=== PATIENT | female | born 1980 | race Caucasian/White ===

== ENCOUNTER 2022-10-03 15:09 | Emergency (ER) | payer OTHER, BC, SELFPAY ==
--- NOTE | ~2022-10-03 | XR_ITS ---
EXAMINATION: XR lumbar spine 2-3V DATE: 10/03/2022 15:38 INDICATION: Low back pain. TECHNIQUE: 3 views of lumbar spine were obtained. COMPARISON: None. FINDINGS: There is 14 degrees dextroscoliosis of thoracolumbar spine. Vertebral body heights and inte rvertebral disc heights are normal. The facet joints are unremarkable. Surgical clips in the right up per quadrant are likely from cholecystectomy. IMPRESSION: 1. Thoracolumbar dextroscoliosis. Reviewed, dictated and finalized at location B.
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
[2022-10-03 15:18] VITALS: BP 130/91; PULSE 77; RESP 16; TEMP 36.5; O2SAT 99
== END 2022-10-03 15:54 | disposition home or self-care (01) ==
PROVIDERS: Emergency Provider Nurse Practitioner
DX: S39.012A Strain of muscle, fascia and tendon of lower back, initial encounter (principal); V43.62XA Car passenger injured in collision with other type car in traffic accident, initial encounter; F41.9 Anxiety disorder, unspecified
CPT/HCPCS: 72100; 99203; G0463

== ENCOUNTER 2023-05-29 17:27 | Emergency (ER) | payer BC, SELFPAY ==
--- NOTE | 2023-05-29 17:34 | ED.GENADULT ---
HPI - General Adult General Chief complaint: Extremity Problem,Nontraumatic Stated complaint: Swelling to Right Leg Source: patient, RN notes reviewed and old records reviewed Mode of arrival: ambulatory Limitations: no limitations History of Present Illness HPI narrative: 42-year-old female presents to [facility] with complaint of right calf pain and swelling that started this a.m.. Patient states pain is in medial and lateral leg. Patient denies injury. Patient denies any other complaints. Related Data Home Medications Medication Instructions Recorded Confirmed amlodipine 5 mg tablet 5 mg PO DAILY 10/03/22 05/29/23 buspirone 7.5 mg tablet 7.5 mg PO BID 10/03/22 05/29/23 escitalopram oxalate 20 mg tablet 20 mg PO DAILY 10/03/22 05/29/23 valacyclovir 1 gram tablet 1,000 mg PO DAILY 10/03/22 05/29/23 zolpidem 10 mg tablet 10 mg PO DAILY 05/29/23 05/29/23 Allergies Allergy/AdvReac Type Severity Reaction Status Date / Time sulfamethoxazole Allergy Unknown Rash Verified 05/29/23 17:45 trimethoprim Allergy Unknown Rash Verified 05/29/23 17:45 meperidine AdvReac Unknown Nausea and Verified 05/29/23 17:45 Vomiting Review of Systems Constitutional: Constitutional: Reports no additional constitutional complaints, Denies body ache(s), Denies chills, Denies fatigue, Denies fever(s) and Denies headache(s) Eyes: Eyes: Reports no additional eye complaints and Denies blurry vision ENT: Reports system reviewed and no additional complaints, except as documented, Denies vertigo, Denies dizziness, Denies ear discharge, Denies otalgia, Denies facial pain, Denies headache(s), Denies nasal congestion, Denies nasal discharge, Denies sinus pain, Denies sinus pressure and Denies sore throat Cardiovascular: Cardiovascular: Reports no additional cardiovascular complaints, Denies chest pain, Denies chest pain at rest, Denies rapid heart rate and Denies dyspnea Respiratory: Respiratory: Reports no additional respiratory complaints, Denies chest congestion, Denies cough, Denies pain on inspiration, Denies pain with cough and Denies dyspnea Gastrointestinal: Gastrointestinal: Denies abdominal pain, Denies diarrhea, Denies nausea and Denies vomiting Musculoskeletal: Comments: Right calf swelling and tenderness this started this a.m. Integumentary/Breasts: Skin/Breast: Denies rash Neurologic: Reports system reviewed and no additional complaints, except as documented, Denies vertigo, Denies dizziness and Denies headache(s) Endocrine: Endocrine: Denies fatigue PMFSH Comments At the time of my signature, I reviewed and agree with the nursing past medical, surgical, social, and family history. There is no relevant family history pertinent to the patient complaint. Exam Const: General: cooperative, healthy appearing, no acute distress and well nourished Nutritional Appearance: well nourished Orientation/consciousness: patient oriented x3 Limitations: no limitations HENMT: Head: normal to inspection and normocephalic Ears: external ears normal Face/Nose/Sinus: normal facial exam Face and sinus: normal facial exam Mouth: Yes Normal oral and palatal mucosa present, Yes oropharynx normal and Yes moist mucous membranes Eyes: General: appearance normal, both eyes and all related structures Sclera: sclerae normal Pupils: Equal, round and reactive pupils present Resp: Effort & Inspection: normal respiratory effort, able to speak in complete sentences, no audible wheezes, no cough, no respiratory distress and no retractions Skin: General skin exam: normal color and no rashes or lesions noted Neuro: General: patient oriented x3 Cranial nerves: Yes Equal, round and reactive pupils present Extrem: Left lower extremity: normal capillary refill, knee Details: normal to inspection, normal ROM and knee ligament exam normal; no tenderness and no swelling and lower leg Details: tenderness and localized swelling; no pitting edema, no abrasions,
[2023-05-29 17:35] VITALS: BP 142/85; PULSE 76; RESP 16; TEMP 36.7; O2SAT 99
== END 2023-05-29 17:53 | disposition short-term general hospital (02) ==
PROVIDERS: Emergency Provider Registered Nurse
DX: R22.41 Localized swelling, mass and lump, right lower limb (principal); F41.9 Anxiety disorder, unspecified
CPT/HCPCS: 99212; G0463

== ENCOUNTER 2023-05-29 18:53 | Emergency (ER) | payer BC, SELFPAY ==
--- NOTE | ~2023-05-29 | US_ITS ---
EXAMINATION: US venous doppler LE RT DATE: 05/29/2023 20:06 INDICATION: r/o dvt . TECHNIQUE: Grayscale images without and with compression and Doppler images of the right lower extrem ity veins were obtained. COMPARISON: None FINDINGS: The right common femoral vein, profunda (deep) femoral vein, femoral vein, popliteal vein, peroneal v ein, posterior tibial veins, gastrocnemius vein, and greater saphenous vein are patent. IMPRESSION: Patent right lower extremity veins. No evidence of deep venous thrombosis. Reviewed, dictated and finalized at location K.
--- NOTE | 2023-05-29 19:15 | ED.GENADULT ---
HPI - General Adult General Chief complaint: Extremity Problem,Nontraumatic Stated complaint: r/o dvt Time Seen by Provider: 05/29/23 19:05 Source: patient Mode of arrival: ambulatory Limitations: no limitations History of Present Illness HPI narrative: This is a 42-year-old female who presents to the ED with chief complaint of right lower extremity intermittent swelling and pain. She was sent here after evaluation urgent care to rule out blood clot. No history of blood clot. Denies any recent travel, immobilization, estrogen use. Denies any rash, fevers, chills. Denies any known injury. Related Data Home Medications Medication Instructions Recorded Confirmed amlodipine 5 mg tablet 5 mg PO DAILY 10/03/22 05/29/23 buspirone 7.5 mg tablet 7.5 mg PO BID 10/03/22 05/29/23 escitalopram oxalate 20 mg tablet 20 mg PO DAILY 10/03/22 05/29/23 valacyclovir 1 gram tablet 1,000 mg PO DAILY 10/03/22 05/29/23 zolpidem 10 mg tablet 10 mg PO DAILY 05/29/23 05/29/23 Allergies Allergy/AdvReac Type Severity Reaction Status Date / Time sulfamethoxazole Allergy Unknown Rash Verified 05/29/23 18:56 trimethoprim Allergy Unknown Rash Verified 05/29/23 18:56 meperidine AdvReac Unknown Nausea and Verified 05/29/23 18:56 Vomiting Review of Systems Review of Systems: All systems as dictated in HPI Exam Narrative: GENERAL: Well-appearing, well-nourished, and in no acute distress. HEAD: Normocephalic, atraumatic. EYES: PERRLA and EOMI. ENT: Nares clear, no rhinorrhea or epistaxis. Mucous membranes moist. Oropharynx without tonsillar hypertrophy exudate or other lesions. NECK: Supple. No adenopathy or masses. CHEST: No respiratory distress. Clear to auscultation. No wheezes rales or rhonchi HEART: Regular rate and rhythm. No murmur heard. Normal peripheral pulses. ABDOMEN: Soft, nontender, nondistended, normal active bowel sounds. MSK: Normal range of motion. No edema bilaterally. No rash. No tenderness throughout extremities. SKIN: Warm, dry, no rash. NEURO: Alert and oriented x3. No focal deficits. PSYCH: Normal mood and affect. Course Vital Signs Vital signs: Vital Signs Pulse Rate 71 05/29/23 20:31 Respiratory Rate 15 05/29/23 20:31 Blood Pressure 124/66 05/29/23 20:31 Pulse Oximetry 100 05/29/23 20:31 Pulse Rate 71 05/29/23 20:31 Respiratory Rate 15 05/29/23 20:31 Blood Pressure 124/66 05/29/23 20:31 Pulse Oximetry 100 05/29/23 20:31 Medical Decision Making MDM Narrative Medical decision making narrative: This is a 42-year-old female who presents to the ED with chief complaint of intermittent right lower extremity swelling and pain. Sent from urgent care to rule out DVT. Vitals are normal. Exam is unremarkable. No edema or signs of DVT. No evidence of skin infection. Doppler study right lower extremity is negative for DVT. Symptoms consistent musculoskeletal pain. Pt will be discharged in stable condition. Return precautions given and supportive measures discussed. Pt is understanding and agreeable with plan for discharge and follow-up with PCP. Vital Signs Vital Signs: Vital Signs Pulse Rate 71 05/29/23 20:31 Respiratory Rate 15 05/29/23 20:31 Blood Pressure 124/66 05/29/23 20:31 Pulse Oximetry 100 05/29/23 20:31 Pulse Rate 71 05/29/23 20:31 Respiratory Rate 15 05/29/23 20:31 Blood Pressure 124/66 05/29/23 20:31 Pulse Oximetry 100 05/29/23 20:31 Discharge Plan Discharge Clinical Impression: Paresthesia of right leg Patient Disposition: Home, Self-Care Condition: Stable Instructions: Antibiotic Form Additional Instructions: your exam and imaging today are reassuring. No blood clot. please follow-up closely with your PCP. If you have any new or worsening symptoms please return to the ER for further evaluation. Prescriptions: No Action zolpidem 10 mg tablet 10 mg PO DAILY valac
[2023-05-29 20:31] VITALS: BP 124/66; PULSE 71; RESP 15; O2SAT 100
== END 2023-05-29 20:32 | disposition home or self-care (01) ==
PROVIDERS: Emergency Provider Physician Assistant
DX: R20.2 Paresthesia of skin (principal)
CPT/HCPCS: 93971; 99212; 99284; G0463

== ENCOUNTER 2023-10-08 14:49 | Emergency (ER) | payer BC, SELFPAY ==
[2023-10-08 15:00] VITALS: BP 126/91; PULSE 87; RESP 20; TEMP 36.9; O2SAT 100
--- NOTE | 2023-10-08 16:04 | ED.SKABFB ---
HPI - Skin/Abscess/Foreign Bdy General Chief complaint: Skin/Abscess/Foreign Body Stated complaint: bites from something Time Seen by Provider: 10/08/23 15:50 Source: patient, RN notes reviewed and old records reviewed Mode of arrival: ambulatory Limitations: no limitations History of Present Illness HPI narrative: 43 year old female who presents to [facility] care with complaints of insect bites to her legs, back, abdomen, genital area since Saturday which are itchy and burning. She reports that she walked through tall grass on Saturday in shorts and tennis shoes and felt like sometime was biting her under pants. Patient reports that she has been applying Calamine lotion to areas and has been taking Benadryl without improvement. Patient denies any fevers or chills. MD complaint: rash and insect bite/sting Onset (ago): day(s) (2) Location: generalized Severity: moderate Quality: pruritic Treatments prior to arrival: Benadryl and other (calamine lotion) Related Data Home Medications Medication Instructions Recorded Confirmed valacyclovir 1 gram tablet 1,000 mg PO DAILY 10/03/22 10/08/23 zolpidem 10 mg tablet 10 mg PO DAILY 05/29/23 10/08/23 Allergies Allergy/AdvReac Type Severity Reaction Status Date / Time sulfamethoxazole Allergy Unknown Rash Verified 10/08/23 15:09 trimethoprim Allergy Unknown Rash Verified 10/08/23 15:09 meperidine AdvReac Unknown Nausea and Verified 10/08/23 15:09 Vomiting Review of Systems Review of Systems: CONSTITUTIONAL: Denies fever, chills, or sweats. CARDIOVASCULAR: Denies chest pain, palpitations, or edema. RESPIRATORY: Denies cough or dyspnea. SKIN: Reports small red raised bumps on legs, abdomen, back, and genital area that are itchy after walking in tall grass MUSCULOSKELETAL: Denies joint pain or myalgia. NEUROLOGIC: Denies headache, numbness, or weakness. All systems reviewed & are unremarkable except as noted in HPI and below PMFSH Past Medical History Medical History (Updated 10/09/23 @ 15:53 by Brittany Lawson NP) Insomnia Surgical History Surgical History H/O: hysterectomy History of cholecystectomy Previous section Social History Social History Smoking status: Current every day smoker Tobacco type: e-cigarettes/vaping Alcohol intake: current Alcohol use details: social Substance use type: does not use Living arrangements: with family Gender identity (if verbalized by the patient): Female Comments At time of signature, agree with nursing past medical, surgical, social and family history. There is no relevant family history pertinent to the presenting complaint Exam Narrative: GENERAL: Well-appearing, well-nourished, and in no acute distress. HEAD: Normocephalic, atraumatic. EYES: PERRLA, conjunctivae clear, and EOMI. ENT: Mucous membranes moist. Oropharynx without edema, erythema or lesions. NECK: Supple. No lymphadenopathy CHEST: Clear to auscultation. No respiratory distress.SAO2 100% on room air HEART: Regular rate and rhythm. SKIN: Warm, dry.?Scattered small red raised bites on legs, back, abdomen, and in genital area NEURO:? Alert and oriented x3. PSYCH: Normal mood and affect Course Course Emergency Course: Patient is aware of diagnosis, understands and agrees to treatment plan.? Anticipatory guidance given.? Patient agrees to follow-up as directed and is aware of reasons to seek care at the emergency department. Portions of this record may have been created with voice recognition software Level of Care: Express Care Visit Vital Signs Vital signs: Vital Signs Temperature 36.9 C 10/08/23 15:00 Pulse Rate 87 10/08/23 15:00 Respiratory Rate 20 10/08/23 15:00 Blood Pressure 126/91 H 10/08/23 15:00 Pulse Oximetry 100 10/08/23 15:00 Oxygen Delivery Room Air 10/08/23 15:00
== END 2023-10-08 16:25 | disposition home or self-care (01) ==
PROVIDERS: Emergency Provider Registered Nurse
DX: L25.9 Unspecified contact dermatitis, unspecified cause (principal); B88.0 Other acariasis; F17.290 Nicotine dependence, other tobacco product, uncomplicated
CPT/HCPCS: 99213; G0463

== ENCOUNTER 2024-04-16 16:34 | Emergency (ER) | payer BC, SELFPAY ==
--- OUTSIDE RECORDS SUMMARY | 2024-04-16 16:37 | XMS_ITS | Patient Health Summary ---
Author Organization [facility] Address [address] [place] [address] Care Team Providers Care Advertising Internship Name Role Phone Unavailable Primary Care Provider Unavailabl e Note from [facility],non-owned Affiliates and Associated Physician Practices is amultiple site organization consisting of ambulatory clinics and hospital sitesin [place], [place], [place] and [place]. This disclosure is being madepursuant to the Care Everywhere program and may not contain all information available regarding this patient. Last updated 17.[facility] Allergies * Meperidine(Anaphylaxis) -High Criticality * Sulfamethoxazole W-Trimethoprim(Nausea) -Low Criticality Medications * Be aware that medications may not be up to date on this document. Alwaysverify current medications with the patient. * norethin-eth estrad-fe biphas (LO LOESTRIN FE) tablet(Started 01/31/2016) Take by mouth DAILY. * valACYclovir (VALTREX) 1 GM tablet(Started 01/24/2016) 8 refills left Active Problems Problem Noted Date Diagnosed Date Subacute on chronic vulvitis 01/31/2016 Pruritus vulvae 01/31/2016 Other specified conditions a ssociated with female genital organs and menstrual cycle 01/31/2016 Social History Tobacco Use Types Packs/Day Years Used Date Smoking Tobacco: Former Cigarettes Q uit: 04/01/2014 Alcohol Use Standard Drinks/Week Comments Yes 0 (1 standard drink = 0.6 oz pur e alcohol) Sex and Gender Information Value Date Recorded Sex Assigned at Not on file Gender Identity Not on file Sexual Orientation Not on file Last Filed Vital Signs Vital Sign Reading Time Taken Comments Blood Pressure 114/78 01/31/2016 1:08 PM CRITICAL CARE SPECIALIST Pulse - - Temperature - - Respiratory Rate - - Oxygen Saturation - - Inhaled Oxygen Concentration - - Weight 52.2 kg (115 lb) 01/31/2016 1:08 PM CRITICAL CARE SPECIALIST Height 160 cm (5' 3 ) 01/31/2016 1:08 PM CRITICAL CARE SPECIALIST Body Mass Index 20.37 01/31/2016 1:08 PM CRITICAL CARE SPECIALIST Procedures * DERMATOPATHOLOGY(Performed 07/25/2022) * PH FLUID - POCT (AMB) [facility](Performed 01/31/2016) * WET PREP - POINT OF CARE (AMB) [facility](Performed 01/31/2016) * FUNGUS FARTUN - POINT OF CARE (AMB) [facility](Performed 01/31/2016) * LAB HISTORICAL RESULTS-ONBASE(Performed 01/31/2016) * CULTURE YEAST WITH DIRECT FLUORESCENT FARTUN(Performed 01/31/2016) Results * DERMATOPATHOLOGY (07/25/2022 3:33 AM CDT) Case Report Dermatopathology Report Case: [id number] Authorizing Provider: Kendall Somers MD Collected: 07/25/2022 03:33 AM Ordering Location: [facility] DermPath Lab Received: 07/27/2022 10:14 AM Pathologist: Gladys Abebe MD Specimen: Skin, right back 5:08 PM CDT DERMATOPATHOLOGY LABORATORY Final Diagnosis Specimen A. SKIN, right back: COMPOUND MELANOCYTIC NEVUS, IRRITATED (D22.5) 5:08 PM CDT DERMATOPATHOLOGY LABORATORY Clinical History Nevus vs. MM. Path# [id number] 5:08 PM CDT DERMATOPATHOLOGY LABORATORY Gross Description Specimen A: Received is one formalin filled container labeled with the patient's name and designated right back. The specimen consists of a shave biopsy measuring [id number]. Jar 0. 5:08 PM CDT DERMATOPATHOLOGY LABORATORY Microscopic Description Specimen A. SKIN, right back: There is melanin pigment in the stratum corneum. There are nests of melanocytes at the dermal-epidermal junction and within the dermis. 5:08 PM CDT DERMATOPATHOLOGY LABORATORY Disclaimer An external and internal positive and negative controls are appropriate for the histochemical, immunohistochemical and immunofluorescence stain(s) in this case (if any), except where stated explicitly. The performance characteristics of the stain(s) cited in this report were developed and its performance characteristic determined by the Dermatopathology Laboratory at [facility], directed by Dr. Sven Alfaro. These tests need not be, and therefore are not, approved by the [place] Food and Drug Administration. The tests are used for clinical purposes. Billing Codes Specimen Charges Stain Charges 28624 1 3 5:08 PM CDT DERMATOPATHOLOGY LABORATORY Embedded Images 3 5:08 PM CDT DERMATOPATHOLOGY LABORATORY Pathology/Cytolo gy TISSUE SPECIMEN FROM SKIN / Unknown 07/25/2022 3:33 AM CDT 07/27/2022 10:14 AM CDT Kendall Somers MD LAB - PATHOLOGY/CYTO LOGY ORDERABLES DERMATOPATHOLOGY LABORATORY [facility] Department of Dermatology [facility] [address] ([place], [place]), [address] [phone] * LAB HISTORICAL RESULTS-ONBASE (01/31/2016) 01/31/2016 Historical Provider LAB - CHEMISTRY O RDERABLES Performing Organization Address [facility]/ZIP Co de Phone Number [facility] [address] * PH FLUID - POCT (AMB) [facility] (01/31/2016) pH Vaginal 5.5 [facility] Vaginal swab (specimen) 01/31/2016 Ekta Guaman APRN-[facility] - POINT OF CARE ORDERABLES [facility] * WET PREP - POINT OF CARE (AMB) [facility] (01/31/2016) pH Wet Prep 5.5 [facility] Yeast Wet Prep n [facility] Trichomonas Wet Prep n [facility] Bacteria Wet Prep n [facility] Whiff Test n [facility] 01/31/2016 Ekta Guaman APRN-[facility] - POINT OF CARE ORDERABLES [facility] * FUNGUS FARTUN - POINT OF CARE (AMB) [facility] (01/31/2016) FARTUN Prep n [facility] Fluid specimen (specimen) 01/31/2016 Ekta Guaman APRN-[facility] - POINT OF CARE ORDERABLES Performing Organization Address [facility]/ZIP Co de Phone Number [facility] * CULTURE YEAST WITH DIRECT FLUORESCENT FARTUN (01/31/2016) Smear SEE NOTE [facility] ([facility]) Comment: CULTURE, YEAST, W/DIRECT FLUORESCENT FARTUN MICRO NUMBER: [id number] TEST STATUS: FINAL SPECIMEN SOURCE: VAGINA SPECIMEN QUALITY: ADEQUATE SMEAR: No yeast seen RESULT: No fungal growth at 2 Weeks Test Performed at: [id number] [id number] PAVEL CISSE MD Vaginal swab (specimen) 01/31/2016 02/01/2016 3:36 AM CRITICAL CARE SPECIALIST Narrative [facility] ([facility]) - 02/15/2016 5:00 AM CRITICAL CARE SPECIALIST Specimen Type->Vaginal swab Ekta NEAL LAB - MICRO BIOLOGY ORDERABLES [facility])
--- OUTSIDE RECORDS SUMMARY | 2024-04-16 16:37 | XMS_ITS | Referral Summary ---
Author Organization [facility] Address [address] [place] [address] Care Team Providers Care Access Assoc Name Role Phone Unavailable Primary Care Provider Unavailabl e Source Comments [facility],non-owned Affiliates and Associated Physician Practices is amultiple site organization consisting of ambulatory clinics and hospital sitesin [place], [place], [place] and [place]. This disclosure is being madepursuant to the Care Everywhere program and may not contain all information available regarding this patient. Last updated 17.[facility] Allergies Active Allergy Reactions Criticality Noted Date Comments Meperidine Anaphylaxis High 01/31/2016 Sulfamethoxazole W-Trimethoprim Nausea Low 01/03 Medications * Be aware that medications may not be up to date on this document. Alwaysverify current medications with the patient. Medication Sig Dispensed Refills Start Date End Date Status norethin-eth estrad-fe biphas (LO LOESTRIN FE) tablet Take by mouth DAILY. 01/31/2016 Active valACYclovir (VALTREX) 1 GM tablet 8 01/24/2016 Active Active Problems Problem Noted Date Diagnosed Date [...] Comments Blood Pressure 114/78 01/31/2016 1:08 PM LAUNCH LEADER Pulse - - Temperature - - Respiratory Rate - - Oxygen Saturation - - Inhaled Oxygen Concentration - - Weight 52.2 kg (115 lb) 01/31/2016 1:08 PM LAUNCH LEADER Height 160 cm (5' 3 ) 01/31/2016 1:08 PM LAUNCH LEADER Body Mass Index 20.37 01/31/2016 1:08 PM LAUNCH LEADER Plan of Treatment Not on file
--- OUTSIDE RECORDS SUMMARY | 2024-04-16 16:37 | XMS_ITS | Encounter Summary ---
Author Organization [facility] Address [address] [place] [address] Phone Care Team Providers Care Armature Balancer Name Role Phone Amol Zhou MD Primary Care Provider [phone] Encounter Details Date Type Department Care Team (Latest Contact Info) Description 04/01/2023 [facility] [address] [place] [id number] Ileana Leung, CRUMB PACKER, BACKEND DEVELOPER [address] [place] [address] Menopausal and female climacteric states (Primary Dx) Social History Tobacco Use Types Packs/Day Years Used Date Smoking Tobacco: Former Cigarettes 1 15 Smokeless Tobacco: Never Alcohol Use Standard Drinks/Week Comments Yes 0 (1 standard drink = 0.6 oz pur e alcohol) Sexually Active Control Partners Comments Yes None Male Comments No Sex and Gender Information Value Date Recorded Sex Assigned at Not on file Legal Sex Female 11:48 PM CDT Gender Identity Not on file Sexual Orientation Not on file documented as of this encounter Plan of Treatment Scheduled Orders Name Type Priority Associated Diagnoses Orde r Schedule THYROID SCREEN WITH REFLEX Lab Routine Menopausal and female climacteric states Expected: 04/01/2023, Expires: 04/01/2024 FOLLICLE STIMULATING HORMONE ([facility]) Lab Routine Menopausal and female climacteric states Expected: 04/01/2023, Expires: 04/01/2024 documented as of this encounter Visit Diagnoses Diagnosis Menopausal and female climacteric states- Primary documented in this encounter Additional Health Concerns Assessment Noted Time PHQ-9 Depression Total Score: 0 04/23/19 17 3:00 PM LOGISTICS LEAD documented as of this encounter Care Teams Armature Balancer Relationship Specialty Start Date End Date Amol Zhou MD [address] [place] [address] [place] [id number] PCP - General Dividend Clerk 10/08/22 documented as of this encounter
--- OUTSIDE RECORDS SUMMARY | 2024-04-16 16:37 | XMS_ITS | Clinical Summary ---
Author Organization [facility] Healthcare Address [address] [place] [address] Care Team Providers Care Health Support Specialist Name Role Phone Simon Sher MD Primary Care Provider Chas Kumar MD Unavailable [phone] Allergies Active Allergy Reactions Criticality Noted Date Comments Meperidine Agitation,Anaphylaxi s High 01/31/2016 Metronidazole Unknown 03/20/2018 Note: Hurts her stomach Sulfamethoxazole-Trimeth oprim Nausea Only,Nausea only Low 04/18/2015 Medications biotin 1 mg tablet Take 1 tablet (1,000 mcg total) by mouth daily 100 tablet 3 04/11/2021 Active ondansetron (ZOFRAN) 4 mg tablet Take 1 tablet (4 mg total) by mouth every 6 (six) hours 12 tablet 1 07/05/2022 Active zolpidem (AMBIEN) 10 mg tabletIndicatio ns:Sleep-Onset Insomnia Take 1 tablet (10 mg total) by mouth nightly as needed for sleep 30 tablet 01/19/2024 5 Active Active Problems Problem Noted Date Diagnosed Date Altered taste 08/07/2023 Assessment & Plan (08/07/2023 4:13 PM CDT): -recurring -patient reports altered since of taste which has happened before and is currently going on once again -patient states she has been evaluated by ENT for this issue which was inconclusive -patient reports due to her altered sense of taste she has had a poor appetite and unintentional weight loss -discussed different options and recommendations for nutritional support -will check vitamin levels related to nutritional status -encourage patient to monitor weight closely Unintentional weight loss 08/07/2023 Assessment & Plan (08/07/2023 4:16 PM CDT): -acute -associated with altered taste and smell and poor appetite -current BMI of 19.39 -patient reports she is typically 10-15 lb heavier than her current weight -encourage patient to explore modifications that is still allow adequate nutritional intake and adding in nutritional supplements -encourage patient to continue to monitor weight closely Body mass index (BMI) of 19 or less in adult 07/2023 Assessment & Plan (08/07/2023 3:02 PM CDT): Wt Readings from Last 3 Encounters: 08/06/23 48.1 kg (106 lb) 03/18/23 48.5 kg (107 lb) 03/07/23 50.5 kg (111 lb 6.4 oz) Body mass index is 19.39 kg/m . -Stable, at goal of <30 bmi -Discussed recommendations for exercise at least 30 minutes moderate to vigorous exercise as tolerated most days of the week. (minimum 150 minutes weekly) -Discussed importance of well-balanced diet -patient reports recent weight loss due to altered taste Essential hypertension 04/10/2022 Assessment & Plan (08/07/2023 3:13 PM CDT): BP Readings from Last 3 Encounters: 08/06/23 120/78 03/18/23 133/85 03/07/23 110/66 -chronic, stable -currently controlled through lifestyle modifications -patient previously prescribed amlodipine, which she states she has not taken in quite awhile -patient reports checking blood pressure regularly at home -continue current therapy Assessment & Plan (01/07/2023 4:21 PM DIRECTOR CHEMISTRY): BP Readings from Last 3 Encounters: 01/07/23 110/74 07/05/22 128/82 07/03/22 110/78 Vitals BP 110/74 (BP Location: Left arm, Patient Position: Sitting) Pulse 72 Resp 16 Ht 157.5 cm (5' 2.01 ) Wt 49.4 kg (109 lb) LMP 09/28/2018 (Approximate) SpO2 97% BMI 19.93 kg/m Lab Results Component Value Date POTASSIUM 4.1 04/26/2022 At goal Continue norvasc 5 mg every day Assessment & Plan (07/05/2022 4:24 PM CDT): BP Readings from Last 3 Encounters: 07/05/22 128/82 07/03/22 110/78 05/22/22 128/82 Vitals BP 128/82 (BP Location: Right arm, Patient Position: Sitting) Pulse 68 Resp 14 Ht 157.5 cm (5' 2.01 ) Wt 49.9 kg (110 lb) LMP 09/28/2018 (Approximate) SpO2 98% BMI 20.11 kg/m Lab Results Component Value Date POTASSIUM 4.1 04/26/2022 At goal Continue norvasc 5 mg every day Assessment & Plan (05/22/2022 4:26 PM CDT): BP Readings from Last 3 Encounters: 05/22/22 128/82 04/26/22 132/82 04/10/22 140/85 Vitals BP 128/82 (BP Location: Left arm, Patient Position: Sitting) Pulse 60 Resp 16 Ht 157.5 cm (5' 2.01 ) Wt 52.2 kg (115 lb) LMP 09/28/2018 (Approximate) SpO2 98% BMI 21.03 kg/m Lab Results Component Value Date POTASSIUM 4.1 04/26/2022 At goal at this time continue norvac 5 mg every day Assessment & Plan (04/10/2022 4:40 PM DIRECTOR CHEMISTRY): BP Readings from Last 3 Encounters: 04/10/22 140/85 08/07/21 141/94 05/09/21 137/88 Vitals BP 140/85 Pulse 68 Resp 16 Ht 160 cm (5' 2.99 ) Wt 52.2 kg (115 lb) LMP 09/28/2018 (Approximate) SpO2 98% BMI 20.38 kg/m Lab Results Component Value Date POTASSIUM 3.5 04/19/2021 Not at goal at this time. Will start norvasc 5 mg every day Depression with anxiety 05/13/2021 Assessment & Plan (08/07/2023 3:28 PM CDT): -chronic, stable -patient currently does not require medications -previously unable to tolerate BuSpar and Lexapro -patient denies any worsening of depressed mood, thoughts of harming herself or others, or worsening anxiety -encouraged patient if her anxiety and depression worse to reach out to office to discuss further options -continue current therapy Assessment & Plan (01/08/2023 7:30 AM DIRECTOR CHEMISTRY): Singificant improvement in sx C/w lexapro 20 mg every day Start remeron 7.5 mg qhs for sleep as well Has racing thoughts when she tries to sleep and worsens her anxiety Assessment & Plan (05/22/2022 4:26 PM CDT): Not at goal at this time Will increase her lexapro to 15 mg - has had good improvement with lexapro at this time Anxiety still not well controlled Will start low dose buspar qhs prn Assessment & Plan (04/10/2022 4:48 PM DIRECTOR CHEMISTRY): Not at goal at this time has been off medications for some time and sx are worse States that she was not doing well on previous regimen Will start lexapro and have her come back in about 4 to 8 weeks for sx check She also has truoble sleeping and has been doing okay withl unesta and has now been on it assisted Would consider stopping.chanigng for something else or referral to sleep medicine Assessment & Plan (08/13/2021 5:18 PM CDT): She is still using a few leftover clonazepam sparingly. Discussed use and safety. Will renew for #15 and 1 refill. Will try desvenlafaxine. Discussed medication. Risks/benefits and how to take medication. Will have her f/u in 1 month Assessment & Plan (05/13/2021 2:46 PM DIRECTOR CHEMISTRY): Stable. Still having difficulty sleeping. I told her she needs to discuss this with psychiatry when she establishes as I do not feel I can any longer prescribe the clonazepam. Will continue zoloft. Pt is going to counseling as is her boyfriend and she states her relationship has improved as well. Tattoo of skin 04/19/2021 Assessment & Plan (04/19/2021 8:49 PM DIRECTOR CHEMISTRY): With cellulitis. Treat with augmentin. Call if no improvement. Dyspareunia in female 07/22/2020 Assessment & Plan (07/22/2020 6:05 PM CDT): Encouraged her to make a follow-up appointment with her insulator tester if pain continues. Healthcare maintenance 08/12/2019 Assessment & Plan (08/07/2023 3:12 PM CDT): Patient overdue on annual lab work, will reorder lab work Assessment & Plan (01/08/2023 7:29 AM DIRECTOR CHEMISTRY): Discussed lifestyle modifications, diet and exercise. Routine blood work ordered/reviewed today. Yearly vision and dental examinations. Assessment & Plan (08/12/2019 7:41 PM CDT): Patient Counseling: --Nutrition: Stressed importance of moderation in sodium/caffeine intake, saturated fat and cholesterol, caloric balance, sufficient intake of fresh fruits, vegetables, --Exercise: Stressed the importance of regular exercise. --Injury prevention: Discussed safety belts, throw rugs in house, smoke detectors, --Dental health: Discussed importance of regular tooth brushing, flossing, and dental visits. Labs as ordered.. Migraine without aura and wi thout status migrainosus, not intractable 08/11/2019 Assessment & Plan (08/11/2019 3:50 PM CDT): Will try maxalt. Discussed risks/benefits of medication, dosage and how to take it. NICOLE (generalized anxiety disorder) 08/20/2018 Assessment & Plan (03/18/2023 11:17 AM DIRECTOR CHEMISTRY): -chronic, not at/near goal -change to buspirone 15 mg half tablet 3 times daily as needed for anxiety -discussed with patient that mood change is likely related to coming off the lexapro without tapering. -follow up with PCP as scheduled or sooner as needed Patient reiterated no suicidal thoughts at this time; take medication as directed; contact 911 and go to the ER if becomes suicidal; discussed side effects of medication with patient; encouraged healthy diet and exericise; encouraged patient to see a counselor Assessment & Plan (03/07/2023 4:21 PM DIRECTOR CHEMISTRY): - chronic condition - used to be on Clonazepam 0.5 mg BID PRN int eh past - had been on Lexapro 20 mg daily which had helped but eventually felt numb and felt like it was not working well for her, less alert and stopped it - discussed do not recommend restarting Clonazepam while she is on Zolpidem, patient aware - currently on Buspirone 7.5 mg BID --> increase to 15 mg BID - no major coexisitng depression at this time - f/u in 2 months Assessment & Plan (01/07/2023 4:23 PM DIRECTOR CHEMISTRY): Has had significant improvement with lexapro But not at goal at this time C/w 20 mg every day Prn klonopin 0.5 mg which she hasn't been taking it Assessment & Plan (07/09/2022 1:54 PM CDT): Worsening anxiety. Increased buspirone 7.5 mg qhs up to bid. Strongly encouraged therapy. Go to nearest ER if you feel you may be a harm to yourself or to others. Assessment & Plan (07/05/2022 4:22 PM CDT): Has had significant improvement with lexapro But not at goal at this time Will increase to 20 mg every day Start low dose klonopin Assessment & Plan (04/19/2021 2:55 PM DIRECTOR CHEMISTRY): She had had some stomach upset with the zoloft 50mg and we decreased it to 25mg. She is doing well with that dose and has for 7 days, so I told her she can now increase it back to 50mg and she how she does Assessment & Plan (04/16/2021 7:49 PM DIRECTOR CHEMISTRY): Discussed trying an ssri. It looks like we tried celexa over a year ago and she had side effects. Pt was agreeable. Will try sertraline 50mg x 7 days, then increase to 100mg. Start hydroxyzine for sleep and prn anxiety. Refer to psychiatry. Assessment & Plan (07/22/2020 6:03 PM CDT): Stable. Doing well with clonazepam p.r.n.. Will continue current medications have her follow-up in 6 months Assessment & Plan (02/25/2020 10:54 AM DIRECTOR CHEMISTRY): Will add clonazepam 0.5 mg 1/2 to 1 tablet b.i.d. p.r.n. for anxiety. Discussed that we I do not prescribe Xanax. We discussed the risks and benefits of short-acting medications such as lorazepam verses clonazepam. She has tried SSRIs and BuSpar in the past without improvement and did not tolerate the SSRIs. Assessment & Plan (08/21/2018 5:54 PM CDT): Will try BuSpar 7.5 mg t.i.d. P.r.n.. Renewed Ambien at bedtime for sleep. Referred to Psychiatry Primary insomnia 02/07/2017 Assessment & Plan (08/07/2023 3:18 PM CDT): -chronic, stable -patient currently takes Ambien 10 mg nightly p.r.n. -patient previously evaluated by sleep Medicine -refill of Ambien provided -continue current therapy Assessment & Plan (03/07/2023 4:23 PM DIRECTOR CHEMISTRY): - chronic condition - issue with sleep initiation and not maintenance - in past has tried Trazodone - had side effects - was on Ambien 10 mg nightly, recently saw Sleep medicine and increased to 12.5 mg Ambien but felt after effects lingering on so wants to be back to her prior dosage - stop Ambien CR 12.5 mg nightly --> switch to Ambien 10 mg nightly, script sent in - see plan for anxiety which is co-exisitng issue as well Assessment & Plan (01/08/2023 7:29 AM DIRECTOR CHEMISTRY): Will refer to sleep medicine Not at goal at this time and worsening sx despite lunesta States that she is able to fall asleep but does wake up Had side effects to trazodone and we have no d/maikol it And seems to continue having fragmented sleep and poor sleep Will start low dose remeron, refer to sleep medicine, and refill lunesta 2 mg prn nightly Assessment & Plan (10/27/2021 10:31 PM CDT): halfway ambien use, then was abruptly discontinued after overdose and now cannot sleep. I am going to try lunesta. Discussed that this is a controlled substance as well. Will look into counseling for sleep problems. Assessment & Plan (08/13/2021 5:19 PM CDT): Will try trazodone 1/2 to 1 tablet at bedtime Assessment & Plan (04/19/2021 2:54 PM DIRECTOR CHEMISTRY): Will add trazodone. She doesn't recall this being overly helpful in the past, but I told her she could try it with the hydroxyzine. Assessment & Plan (04/16/2021 7:51 PM DIRECTOR CHEMISTRY): May try hydroxyzine at bedtime. Assessment & Plan (01/27/2021 6:47 PM DIRECTOR CHEMISTRY): Continue ambien Assessment & Plan (07/22/2020 6:06 PM CDT): Patient continues on Ambien nightly. Doing well with this and takes appropriately. I checked their [place] TRANSPORTATION PROGRAM DIRECTOR sheet, and it was consistent with prescribed medications. Assessment & Plan (02/25/2020 10:52 AM DIRECTOR CHEMISTRY): Improved with Ambien at bedtime. Will continue current medications. Assessment & Plan (08/12/2019 7:40 PM CDT): Improved/ stable with help of ambien. Will continue current dose. F/u 6 months Assessment & Plan (02/07/2017 4:20 PM DIRECTOR CHEMISTRY): Will continue ambien for now. Consider trying elavil in the future. I'd like to get her labs back before switching to anything different. I asked her to f/u in 1 month for recheck. Acne 02/06/2017 Assessment & Plan (01/17/2021 7:56 AM DIRECTOR CHEMISTRY): Continue spironolactone. Will start Retin-A 0.1% cream. Use sparingly at night to areas of acne. Discussed side effects including redness and dryness. Recommended using oil free moisturizer as well. Patient has a follow-up in office on January 23 and will discuss how she is doing with that at that appointment. Assessment & Plan (08/12/2019 7:40 PM CDT): May continue spironolactone daily. IBS (irritable bowel syndrome) 02/06/2017 Assessment & Plan (07/22/2020 6:03 PM CDT): Symptoms still consistent with IBS. No hernia palpated on exam. Patient is cleared to start her new exercise/lifting routine Assessment & Plan (12/04/2017 4:12 PM CDT): Discussed diagnosis. Patient states that her symptoms were improved when she was on the Celexa. She did have less bloating. I discussed how stress can make IBS symptoms worse. She believes constipation is controlled with the stool softener daily. I discussed referral to Gastroenterology and she was agreeable. We will check labs today including a celiac panel. We discussed gluten intolerance and trying a gluten free diet even if celiac panel was negative. Will also start Zoloft primarily for the depression and anxiety. Elevated LFTs Assessment & Plan (01/08/2023 7:31 AM DIRECTOR CHEMISTRY): Chemistry Lab Results Component Value Date SODIUM 139 04/26/2022 POTASSIUM 4.1 04/26/2022 CHLORIDE 104 04/26/2022 CO2 25 04/26/2022 ANIONGAP 11 04/26/2022 BUNSER 19 04/26/2022 CREATININE 0.75 04/26/2022 GLUCOSE 82 04/26/2022 CALCIUM 9.4 04/26/2022 BILITOT 1.1 04/26/2022 ALBUMIN 4.4 04/26/2022 GFRNAA 103 04/26/2022 ALKPHOS 67 04/26/2022 AST 21 04/26/2022 ALT 10 04/26/2022 PHOS 3.1 04/05/2021 MAGNESIUM 1.6 04/05/2021 Most recent labs as above Wnl Recheck with next lab work Assessment & Plan (04/10/2022 4:47 PM DIRECTOR CHEMISTRY): Repeat labs Assessment & Plan (04/16/2021 7:52 PM DIRECTOR CHEMISTRY): Elevated due to overdose. Will reorder LFT's to follow, recommended to have them rechecked in 5-7 days along with CK Resolved Problems Problem Noted Date Diagnosed Date Resolved Date Cellulitis of left upper extremity 04/19/2021 01/08/2023 Assessment & Plan (04/19/2021 8:50 PM DIRECTOR CHEMISTRY): Secondary to tattoo. Treat with augmentin. 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 However patient had a son with a positive strep. She has the throat pain and cervical lymphadenopathy that is consistent with strep. Will treat with amoxicillin for presumed strep. Swab Sent for throat culture Dysthymia 03/12/2017 08/12/2019 Assessment & Plan (12/04/2017 4:13 PM CDT): States that she does want to start another medication. She believes that she needs to be on something. Start Zoloft 50 milligrams 1/2 tablet for 7 days and titrating up to 50 milligrams. Discussed starting dose titrating dose and time frame for expected improvement. Discussed side effects. Will have her return in 1 month for recheck. Assessment & Plan (04/09/2017 4:10 PM DIRECTOR CHEMISTRY): Improving with celexa. She agrees with increase to 20mg as she still has some anxiety and edginess . Will have her f/u in 3 months for recheck. May continue ambien prn for sleep. Assessment & Plan (03/12/2017 8:26 AM DIRECTOR CHEMISTRY): Discussed starting a medication and pt is agreeable. Will start celexa . Discussed starting dose and titration to full dose, possible SE and time frame for expected results. Call if any suicidal thoughts or questions concerning SE. Do not abruptly stop medication without calling office. Follow up in 3-4 weeks for recheck and continuation of medications. Dry mouth 03/07/2017 08/12/2019 Assessment & Plan (03/12/2017 8:25 AM DIRECTOR CHEMISTRY): I told her dry mouth could be related or worsening due to invisalign use. Refer to endocrinology to discuss symptoms Hair loss 02/06/2017 01/08/2023 Assessment & Plan (03/12/2017 8:25 AM DIRECTOR CHEMISTRY): We discussed seeing dermatology. Patient is requesting to see an mail teller because of her family hx of thyroid disease and diabetes. She has a name of a doctor her mother sees, so referral was placed. I gave her an order to check an insulin level Assessment & Plan (02/07/2017 4:19 PM DIRECTOR CHEMISTRY): Will check TSH. Other fatigue 02/06/2017 07/22/2020 Assessment & Plan (12/04/2017 4:14 PM CDT): Will recheck labs as ordered. Assessment & Plan (02/06/2017 5:01 PM DIRECTOR CHEMISTRY): Will check labs today. Mild dysplasia of cervix (LEIGH I) 12/19/2011 07/22/2020 Overview (08/11/2019): Note: Unchanged - on colp and biopsy on 09/08/2006 Encounters Date Type Department Care Team Description 01/21/2024 Telephone [facility] Primary Care at [address] [place] [address] Simon Sher MD Medical Question/Miscellaneous from Last 3 Months Immunizations Name Administration Dates Next Due Influenza, Quadrivalent, Spl it, Preservative Free, Intramuscular 04/10/2022,01/23/2021 Influenza, Unspecified 12/10/2022,2021,02/25/2020(Defer red: Patient Refused),12/03/2019(Deferred: Patient Refused),12/02/2018(Deferred: Patient Refused),12/02/2017,12/02/2016 Pfizer SARS-CoV-2 Monovalent Vaccination (12+ Yrs) PURPLE 04/07/2021,03/17/2021 Td, adsorbed 05/15/1994 Tdap 04/10/2022 Surgical History Surgery Date Site/Laterality Comments CHOLECYSTECTOMY SECTION HYSTERECTOMY Still has ovaries Medical History Medical History Date Comments Endometriosis Anxiety Endometriosis of pelvic peritoneum 04/20/2019 Note: Unchanged Family History Medical History Relation Name Comments Hypertension Maternal Grandmother Hypertension Mother Relation Name Status Comments Maternal Grandmother Mother Social History Tobacco Use Types Packs/Day Years Used Date Smoking Tobacco: Former Cigarettes 1 15 1 999 - 2013 Smokeless Tobacco: Never Tobacco Cessation:Counseling Given: Not Answered Alcohol Use Standard Drinks/Week Comments Not Currently 0 (1 standard drink = 0.6 oz pur e alcohol) AUDIT-C Answer Date Recorded Q1: How often do you have a drink containing alcohol? Never 08/06/2023 Q2: How many drinks containi ng alcohol do you have on a typical day when you are drinking? Patient does not drink Q3: How often do you have si x or more drinks on one occasion? Never 08/06/2023 PHQ-2 Answer Date Recorded PHQ-2 Total Score (If total score is 3 or more points, staff should administer the PHQ-9) 0 08/06/2023 Personal Safety Answer Date Recorded Getting School Help Needed Denies 02/11 Comments No Sex and Gender Information Value Date Recorded Sex Assigned at Not on file Legal Sex Female 12:11 AM DIRECTOR CHEMISTRY Gender Identity Not on file Sexual Orientation Not on file Obstetrics History Last Filed Vital Signs Vital Sign Reading Time Taken Comments Blood Pressure 114/68 11/19/2023 4:23 PM CDT Pulse 85 11/19/2023 4:23 PM CDT Temperature 36.8 C (98.2 F) 11/19/2023 4:23 PM CDT Respiratory Rate 17 11/19/2023 4:23 PM CDT Oxygen Saturation 98% 11/19/2023 4:23 PM CDT Inhaled Oxygen Concentration - - Weight 48.1 kg (106 lb) 11/19/2023 4:23 PM CDT Height 157.5 cm (5' 2 ) 11/19/2023 4:23 PM CDT Body Mass Index 19.39 11/19/2023 4:23 PM CDT Plan of Treatment Health Maintenance Due Date Last Done Comments Breast Cancer Screening-Mammogram 1980 Hepatitis C Screening 1980 Hepatitis B Screening 1998 Influenza Vaccine (#1) 2023 3, 04/10/2022, 01/08/2022, Additional history exists Regular Well Visit/Exam 18-64 01/08/2024 01/07/2023, 08/11/2019 Depression Screening 08/05/2024 08/06/2023, 03/07/2023, 07/03/2022, Additional history exists DTaP/Tdap/Td Vaccine (2 - Td or Tdap) 04/10/2032 04/10/2022, 05/15/1994 Covid-19 Vaccine Discontinued 04/07/2021, 03/17/2021 Cervical Cancer Screening Discontinued 2022, 04/13/2019, 04/13/2019, Additional history exists HPV Vaccines Aged Out No longer eligi ble based on patient's age to complete this topic Pneumococcal vaccine <65 Aged Out No longer eligible based on patient's age to complete this topic Varicella Vaccines Discontinued Procedures Procedure Name Priority Date/Time Associated Diagnosis Comments HM PAP SMEAR WITH HPV Routine 10/08/2022 from Last 3 Months or Most Recently Relevant to Health Maintenance Results * HM PAP SMEAR WITH HPV (10/08/2022) us Generic External Data Provider HEALTH MAINTENANC E Final Result from Last 3 Months or Most Recently Relevant to Health Maintenance Insurance [employer] [place] Advance Directives For more information, please contact: [phone] * Full Code (Latest Code Status on File) Date Activated Date Inactivated Comments 04/05/2021 3:29 PM 04/10/2021 4:26 PM Care Teams Health Support Specialist Relationship Specialty Start Date End Date Simon Sher MD [address] [place] [address] DR CHANG [address] [address] PCP - General Family Medicine 03/07/23 Chas Kumar MD [address] [place] [address] [address] Final Inspector [facility] Obstetrics and Gynecology 08/06/23
--- OUTSIDE RECORDS SUMMARY | 2024-04-16 16:37 | XMS_ITS | Encounter Summary ---
Author Organization [facility] Healthcare Address [address] [place] [address] Care Team Providers Care Electronic Engraver Name Role Phone Marquita Hong NP Unavailable Marquita Hong NP Primary Care Provider [phone] Laura Reddy MD Unavailable Amol Zhou MD Primary Care Provider [phone] Simon Sher MD Primary Care Provider Chas Kumar MD Unavailable [phone] Encounter Details Date Type Department Care Team (Late st Contact Info) Description 08/21/2019 Telephone [facility] [address] [place] [id number] Malena Olmedo, JADE Social History Tobacco Use Types Packs/Day Years Used Date Smoking Tobacco: Former Cigarettes 1 2013 Smokeless Tobacco: Never PHQ-2 Answer Date Recorded PHQ-2 Score 0 08/11/2019 Comments No Sex and Gender Information Value Date Recorded Sex Assigned at Not on file Legal Sex Female 12:11 AM CREDIT CHECKER Gender Identity Not on file Sexual Orientation Not on file documented as of this encounter Plan of Treatment Not on file documented as of this encounter Visit Diagnoses Not on filedocumented in this encounter Additional Health Concerns Infection Onset Date Last Indicated Resolved Time COVID: Suspected 07/22/2020 07/22/2020 07/22/2020 6:47 PM CDT COVID: Suspected 11/24/2020 11/24/2020 11/24/2020 4:28 PM CDT COVID19 Comment:Patient has no documented SpO2 < 94% and does not require supplemental oxygen. Based on a S&S onset date of 11/24/20 plus no need for supplemental oxygen this patient is first eligible for COVID: Recovered evaluation on 12/05/20. SWETA Riddle Added from the Screening question BPA, identifying patients that tested positive for COVID in the last 14 days and the result is from a facility outside [facility] . 11/25/2020 11/25/2020 12/06/2020 3:49 PM CDT COVID: Recovered Comment:Patient meets COVID: Recovered criteria. See positive test results from 11/25/20. SWETA Riddle 12/05/2020 12/06/2020 04/05/2021 3:[address] COVID: Suspected 12/26/2022 12/26/2022 12/26/2022 3:33 PM CDT COVID: Suspected 02/11/2023 02/11/2023 02/11/2023 5:41 PM CREDIT CHECKER COVID: Suspected 02/11/2023 02/11/2023 02/12/2023 3:05 AM CREDIT CHECKER COVID: Suspected 02/11/2023 02/11/2023 02/12/2023 10:55 AM CREDIT CHECKER COVID: Suspected 02/15/2023 02/15/2023 02/16/2023 3:05 AM CREDIT CHECKER COVID: Suspected 02/22/2023 02/22/2023 02/22/2023 3:04 PM CREDIT CHECKER COVID: Suspected 11/19/2023 11/19/2023 11/19/2023 4:49 PM CDT documented as of this encounter Care Teams Electronic Engraver Relationship Specialty Start Date End Date Marquita Hnog NP PCP - General Family Medicine 06/14/17 04/09/22 Amol Zhou MD [address] [address] PCP - General Family Medicine 04/10/22 03/06/23 Simon Sher MD [address] [facility] [address] [address] PCP - General Family Medicine 03/07/23 Marquita Hong NP Family Medicine 06/01/17 03/06/23 Laura Reddy MD [address] [address] Consulting Physician Psychiatry 04/10/21 11/14/22 Chas Kumar MD [address] [place] [address] [address] Medical Historian Obstetrics and Gynecology 08/06/23 documented as of this encounter
--- OUTSIDE RECORDS SUMMARY | 2024-04-16 16:37 | XMS_ITS | Referral Summary ---
Author Organization [facility] Healthcare Address [address] [place] [address] Care Team Providers Care Medical Library Assistant Name Role Phone Simon Sher MD Primary Care Provider Chas Kumar MD Unavailable Encounters Date Type Department Care Team Description 01/21/2024 Telephone [facility] Primary Care at [address] [place] [address] Simon Sher MD Medical Question/Miscellaneous from Last 3 Months Allergies Active Allergy Reactions Criticality Noted Date [...] therapy Assessment & Plan (01/07/2023 4:21 PM SLEEVE MAKER): BP Readings from Last 3 Encounters: 01/07/23 [...] day Assessment & Plan (04/10/2022 4:40 PM SLEEVE MAKER): BP Readings from Last 3 Encounters: 04/10/22 [...] therapy Assessment & Plan (01/08/2023 7:30 AM SLEEVE MAKER): Singificant improvement in sx C/w lexapro 20 [...] prn Assessment & Plan (04/10/2022 4:48 PM SLEEVE MAKER): Not at goal at this time has [...] month Assessment & Plan (05/13/2021 2:46 PM SLEEVE MAKER): Stable. Still having difficulty sleeping. I told her she needs to discuss this with psychiatry when she establishes as I do not feel I can any longer prescribe the clonazepam. Will continue zoloft. Pt is going to counseling as is her boyfriend and she states her relationship has improved as well. Tattoo of skin 04/19/2021 Assessment & Plan (04/19/2021 8:49 PM SLEEVE MAKER): With cellulitis. Treat with augmentin. Call if no improvement. Dyspareunia in female 07/22/2020 Assessment & Plan (07/22/2020 6:05 PM CDT): Encouraged her to make a follow-up appointment with her director global market research if pain continues. Healthcare maintenance 08/12/2019 Assessment & Plan (08/07/2023 3:12 PM CDT): Patient overdue on annual lab work, will reorder lab work Assessment & Plan (01/08/2023 7:29 AM SLEEVE MAKER): Discussed lifestyle modifications, diet and exercise. Routine [...] 08/20/2018 Assessment & Plan (03/18/2023 11:17 AM SLEEVE MAKER): -chronic, not at/near goal -change to buspirone [...] counselor Assessment & Plan (03/07/2023 4:21 PM SLEEVE MAKER): - chronic condition - used to be [...] months Assessment & Plan (01/07/2023 4:23 PM SLEEVE MAKER): Has had significant improvement with lexapro But [...] klonopin Assessment & Plan (04/19/2021 2:55 PM SLEEVE MAKER): She had had some stomach upset with the zoloft 50mg and we decreased it to 25mg. She is doing well with that dose and has for 7 days, so I told her she can now increase it back to 50mg and she how she does Assessment & Plan (04/16/2021 7:49 PM SLEEVE MAKER): Discussed trying an ssri. It looks like [...] months Assessment & Plan (02/25/2020 10:54 AM SLEEVE MAKER): Will add clonazepam 0.5 mg 1/2 to [...] therapy Assessment & Plan (03/07/2023 4:23 PM SLEEVE MAKER): - chronic condition - issue with sleep [...] well Assessment & Plan (01/08/2023 7:29 AM SLEEVE MAKER): Will refer to sleep medicine Not at [...] Assessment & Plan (10/27/2021 10:31 PM CDT): senior care ambien use, then was abruptly discontinued after overdose and now cannot sleep. I am going to try lunesta. Discussed that this is a controlled substance as well. Will look into counseling for sleep problems. Assessment & Plan (08/13/2021 5:19 PM CDT): Will try trazodone 1/2 to 1 tablet at bedtime Assessment & Plan (04/19/2021 2:54 PM SLEEVE MAKER): Will add trazodone. She doesn't recall this being overly helpful in the past, but I told her she could try it with the hydroxyzine. Assessment & Plan (04/16/2021 7:51 PM SLEEVE MAKER): May try hydroxyzine at bedtime. Assessment & Plan (01/27/2021 6:47 PM SLEEVE MAKER): Continue ambien Assessment & Plan (07/22/2020 6:06 PM CDT): Patient continues on Ambien nightly. Doing well with this and takes appropriately. I checked their [place] PHARMACY COORDINATOR sheet, and it was consistent with prescribed medications. Assessment & Plan (02/25/2020 10:52 AM SLEEVE MAKER): Improved with Ambien at bedtime. Will continue current medications. Assessment & Plan (08/12/2019 7:40 PM CDT): Improved/ stable with help of ambien. Will continue current dose. F/u 6 months Assessment & Plan (02/07/2017 4:20 PM SLEEVE MAKER): Will continue ambien for now. Consider trying elavil in the future. I'd like to get her labs back before switching to anything different. I asked her to f/u in 1 month for recheck. Acne 02/06/2017 Assessment & Plan (01/17/2021 7:56 AM SLEEVE MAKER): Continue spironolactone. Will start Retin-A 0.1% cream. [...] LFTs Assessment & Plan (01/08/2023 7:31 AM SLEEVE MAKER): Chemistry Lab Results Component Value Date SODIUM [...] work Assessment & Plan (04/10/2022 4:47 PM SLEEVE MAKER): Repeat labs Assessment & Plan (04/16/2021 7:52 PM SLEEVE MAKER): Elevated due to overdose. Will reorder LFT's to follow, recommended to have them rechecked in 5-7 days along with CK Resolved Problems Problem Noted Date Diagnosed Date Resolved Date Cellulitis of left upper extremity 04/19/2021 01/08/2023 Assessment & Plan (04/19/2021 8:50 PM SLEEVE MAKER): Secondary to tattoo. Treat with augmentin. 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 However patient had a [...] recheck. Assessment & Plan (04/09/2017 4:10 PM SLEEVE MAKER): Improving with celexa. She agrees with increase to 20mg as she still has some anxiety and edginess . Will have her f/u in 3 months for recheck. May continue ambien prn for sleep. Assessment & Plan (03/12/2017 8:26 AM SLEEVE MAKER): Discussed starting a medication and pt is [...] 08/12/2019 Assessment & Plan (03/12/2017 8:25 AM SLEEVE MAKER): I told her dry mouth could be related or worsening due to invisalign use. Refer to endocrinology to discuss symptoms Hair loss 02/06/2017 01/08/2023 Assessment & Plan (03/12/2017 8:25 AM SLEEVE MAKER): We discussed seeing dermatology. Patient is requesting to see an adjunct faculty instructor because of her family hx of thyroid disease and diabetes. She has a name of a doctor her mother sees, so referral was placed. I gave her an order to check an insulin level Assessment & Plan (02/07/2017 4:19 PM SLEEVE MAKER): Will check TSH. Other fatigue 02/06/2017 07/22/2020 Assessment & Plan (12/04/2017 4:14 PM CDT): Will recheck labs as ordered. Assessment & Plan (02/06/2017 5:01 PM SLEEVE MAKER): Will check labs today. Mild dysplasia of cervix (LEIGH I) 12/19/2011 07/22/2020 Overview (08/11/2019): Note: Unchanged - on colp and biopsy on 09/08/2006 Immunizations Name Administration Dates Next Due Influenza, Quadrivalent, Spl it, Preservative Free, Intramuscular 04/10/2022,01/23/2021 Influenza, Unspecified 12/10/2022,2021,02/25/2020(Defer red: Patient Refused),12/03/2019(Deferred: Patient Refused),12/02/2018(Deferred: Patient Refused),12/02/2017,12/02/2016 Pfizer SARS-CoV-2 Monovalent Vaccination (12+ Yrs) PURPLE 04/07/2021,03/17/2021 Td, adsorbed 05/15/1994 Tdap 04/10/2022 Social History Tobacco Use Types Packs/Day Years [...] on file Legal Sex Female 12:11 AM SLEEVE MAKER Gender Identity Not on file Sexual Orientation [...] 11/19/2023 4:23 PM CDT Plan of Treatment Not on file Procedures Procedure Name Priority Date/Time Associated Diagnosis Comments HM PAP SMEAR WITH HPV Routine 10/08/2022 from Last 3 Months or Most Recently Relevant to Health Maintenance Results * HM PAP SMEAR WITH HPV (10/08/2022) Generic External Data Provider HEALTH MAINTENANC E Final Result from Last 3 Months or Most Recently Relevant to Health Maintenance Insurance [facility] ACCESS [employer] [place] [employer] [place] Advance Directives For more information, please contact: [phone] * Full Code (Latest Code Status on File) Date Activated Date Inactivated Comments 04/05/2021 3:29 PM 04/10/2021 4:26 PM Care Teams Medical Library Assistant Relationship Specialty Start Date End Date Simon Sher MD [address] [place] [address] [address] [address] PCP - General Family Medicine 03/07/23 Chas Kumar MD NPI: [id number] [place] [address] [facility] [place] [address] Stamp Presser Obstetrics and Gynecology 08/06/23
--- OUTSIDE RECORDS SUMMARY | 2024-04-16 16:37 | XMS_ITS | Encounter Summary ---
Author Organization [facility] Address [address] [place] [address] Care Team Providers Care Gaming Dealer Name Role Phone Unavailable Primary Care Provider Unavailabl e Encounter Details Date Type Department Care Team (Late st Contact Info) Description 07/27/2022 Lab Requisition [facility] - Derm[facility] Lab [address] [place] [id number] Kendall Somers MD [address] [place] [address] Social History Tobacco Use Types Packs/Day Years [...] on file documented as of this encounter Procedures Procedure Name Priority Date/Time Associated Diagnosis Comments DERMATOPATHOLOGY Routine 07/25/2022 3:33 AM CDT documented in this encounter Results * DERMATOPATHOLOGY (07/25/2022 3:33 AM CDT) Case Report Dermatopathology Report Case: [id number] Authorizing Provider: Kendall Somers MD Collected: 07/25/2022 03:33 AM Ordering Location: [facility] D[facility] Lab Received: 07/27/2022 10:14 AM Pathologist: Gladys Abebe MD Specimen: Skin, right back 3 5:08 PM CDT DERMATOPATHOLOGY LABORATORY Final Diagnosis Specimen A. SKIN, right back: COMPOUND MELANOCYTIC NEVUS, IRRITATED (D22.5) 3 5:08 PM CDT DERMATOPATHOLOGY LABORATORY Clinical History Nevus vs. MM. Path# [id number] 3 5:08 PM CDT DERMATOPATHOLOGY LABORATORY Gross Description Specimen A: Received is one formalin filled container labeled with the patient's name and designated right back. The specimen consists of a shave biopsy measuring [id number]. Jar 0. 3 5:08 PM CDT DERMATOPATHOLOGY LABORATORY Microscopic Description Specimen A. SKIN, right back: There is melanin pigment in the stratum corneum. There are nests of melanocytes at the dermal-epidermal junction and within the dermis. 3 5:08 PM CDT DERMATOPATHOLOGY LABORATORY Disclaimer An external and internal positive and negative controls are appropriate for the histochemical, immunohistochemical and immunofluorescence stain(s) in this case (if any), except where stated explicitly. The performance characteristics of the stain(s) cited in this report were developed and its performance characteristic determined by the Dermatopathology Laboratory at [facility], directed by Dr. Sven Alfaro. These tests need not be, and therefore are not, approved by the [place] Food and Drug Administration. The tests are used for clinical purposes. Billing Codes Specimen Charges Stain Charges 77278 1 3 5:08 PM CDT DERMATOPATHOLOGY LABORATORY Embedded Images 3 5:08 PM CDT DERMATOPATHOLOGY LABORATORY Pathology/Cytolo gy TISSUE SPECIMEN FROM SKIN / Unknown 07/25/2022 3:33 AM CDT 07/27/2022 10:14 AM CDT Kendall Somers MD LAB - PATHOLOGY/CYTO LOGY ORDERABLES DERMATOPATHOLOGY LABORATORY [facility] - Department of Dermatology [address] [phone] documented in this encounter Visit Diagnoses Not on filedocumented in this encounter
--- OUTSIDE RECORDS SUMMARY | 2024-04-16 16:37 | XMS_ITS | Clinical Summary ---
Author Organization [facility] Address [address] [place] [address] Care Team Providers Care Boat Canvas Maker Installer Name Role Phone Unavailable Primary Care Provider Unavailabl e Source Comments [facility],non-owned Affiliates and Associated Physician Practices is amultiple site organization consisting of ambulatory clinics and hospital sitesin [place], [place], [place] and [place]. This disclosure is being madepursuant to the Care Everywhere program and may not contain all information available regarding this patient. Last updated 17.[facility] Allergies Active Allergy Reactions Criticality Noted Date [...] female genital organs and menstrual cycle 01/31/2016 Family History Medical History Relation Name Comments Heart Disease Father a fib; Status: Alive Cancer - Colon Maternal Grandfather Diabetes Maternal Grandfather Status: Hypertension Maternal Grandfather Diabetes Maternal Grandmother Status: Alive Elevated Lipids Maternal Grandmother Heart Disease Maternal Grandmother Hypertension Maternal Grandmother Osteoporosis Maternal Grandmother Diabetes Maternal Uncle Status: Alive Hypertension Maternal Uncle Elevated Lipids Mother Heart Disease Mother Hypertension Mother Osteoporosis Mother Status: Alive Cancer - Colon Other 1 great grandfather Status: Cancer - Breast Other 2 great grandmother Status: Cancer - Prostate Paternal Grandfather St atus: Cancer Paternal Grandmother kidney; Status: Cancer - Ovarian Sister Status: Ali ve Endometriosis Sister Relation Name Status Comments Father Maternal Grandfather Maternal Grandmother Maternal Uncle Mother Other 1 great grandfather Other 2 great grandmother Paternal Grandfather Paternal Grandmother Sister Social History Tobacco Use Types Packs/Day Years [...] Comments Blood Pressure 114/78 01/31/2016 1:08 PM HOUSEKEEPING CLEANER Pulse - - Temperature - - Respiratory Rate - - Oxygen Saturation - - Inhaled Oxygen Concentration - - Weight 52.2 kg (115 lb) 01/31/2016 1:08 PM HOUSEKEEPING CLEANER Height 160 cm (5' 3 ) 01/31/2016 1:08 PM HOUSEKEEPING CLEANER Body Mass Index 20.37 01/31/2016 1:08 PM HOUSEKEEPING CLEANER Plan of Treatment Health Maintenance Due Date Last Done Comments LIPID TESTING 1980 MAMMOGRAM 1980 PAP SMEAR 1980 HIV SCREENING 09/01/1995 HEPATITIS C SCREENING 08/27/1998 DTAP/TDAP/TD VACCINES (1 - Tdap) 09/01/1999 HEPATITIS B VACCINE (1 of 3 - 19+ 3-dose series) 09/01/1999 COVID-19 VACCINE ( - 2023-2 5 season) 2023 INFLUENZA VACCINE (#1) 2023 DEPRESSION SCREENING 03/04/2024 ZOSTER VACCINE (1 of 2) 2030 HIB VACCINE Aged Out No longer eligi ble based on patient's age to complete this topic HPV VACCINE Aged Out No longer eligi ble based on patient's age to complete this topic MENINGOCOCCAL (Group B) VACCINE Aged Out No longer eligible based on patient's age to complete this topic MENINGOCOCCAL VACCINE Aged Out No jacqueline cici eligible based on patient's age to complete this topic PNEUMOCOCCAL VACCINE Aged Out No long er eligible based on patient's age to complete this topic
--- OUTSIDE RECORDS SUMMARY | 2024-04-16 16:37 | XMS_ITS | Clinical Summary ---
Author Organization [facility] Address [address] [place] [address] Phone Care Team Providers Care Financial Services Sales Representative Name Role Phone Amol Zhou MD Primary Care Provider [phone] Allergies Active Allergy Reactions Criticality Noted Date Comments Sulfamethoxazole-Trimethoprim Nausea 2015 Metronidazole Unknown 03/20/2018 Note: Hurts her stomach Medications valACYclovir (VALTREX) 500 MG Tablet 09/30/2015 Active valACYclovir (VALTREX) 1 GM Tablet TK 1 T PO QD 7 02/24/2016 Active zolpidem (AMBIEN) 5 MG Tablet Take 1 Tab by mouth nightly as needed. 30 Tab 01/06/2017 Active clonazePAM (KlonoPIN) 0.5 MG Tablet TAKE 1/2 TO 1 TABLET BY MOUTH TWICE A DAY NEEDED FOR ANXIETY 07/01/2020 Active ciprofloxacin (CIPRO) 500 MG TabletIndicatio ns:Urinary tract infection, recurrent Take 1 Tablet by mouth 2 times daily. 30 Tablet 3 07/06/2020 Active Active Problems Problem Noted Date Diagnosed Date Acne Falling hair IBS (irritable bowel syndrome) Family History Medical History Relation Name Comments No Known Problems Father Diabetes Mother Heart Disease Mother Hypertension Mother Multiple Sclerosis Mother Relation Name Status Comments Father Alive Mother Alive Social History Tobacco Use Types Packs/Day Years Used Date Smoking Tobacco: Former Cigarettes 1 15 Smokeless Tobacco: Never Tobacco Cessation:Counseling Given: Not Answered Alcohol Use Standard Drinks/Week Comments Yes 0 [...] Sign Reading Time Taken Comments Blood Pressure 126/75 05/30/2023 8:59 AM CDT Pulse 83 05/30/2023 8:59 AM CDT Temperature 36.6 C (97.8 F) 05/30/2023 8:59 AM CDT Respiratory Rate 18 05/30/2023 8:59 AM CDT Oxygen Saturation 100% 05/30/2023 8:59 AM CDT Inhaled Oxygen Concentration - - Weight 49.4 kg (109 lb) 05/30/2023 8:59 AM CDT Height 157.5 cm (5' 2 ) 05/30/2023 8:59 AM CDT Body Mass Index 19.94 05/30/2023 8:59 AM CDT Plan of Treatment Health Maintenance Due Date Last Done Comments Hepatitis C Virus (HCV) Screening 1980 Hepatitis B Immunization (1 of 3 - 19+ 3-dose series) 09/01/1999 Discussion re Starting/Frequency of Mammograms 2020 Influenza Immunization (#1) 2023 10/0 11/2022, 04/10/2022, 01/08/2022, Additional history exists SARS-COV-2 Immunization (2023- season) 2023 04/07/2021, 03/17/2021 Respiratory Syncytial Virus (RSV) Immunization (Adult) (1 - 1-dose 75+ series) 09/01/2055 TdaP Immunization Completed 04/10/2022 Meningococcal Immunization (ACWY) Aged Out No longer eligible based on patient's age to complete this topic Pneumococcal Immunization Combined Aged Out No longer eligible based on patient's age to complete this topic Rotavirus Immunization Aged Out No lo nger eligible based on patient's age to complete this topic [place] [address] Care Teams Financial Services Sales Representative Relationship Specialty Start Date End Date Amol Zhou MD [address] [place] [address] PCP - General Instrument Mechanic [employer] 10/08/22
[2024-04-16 16:50] VITALS: BP 139/80; PULSE 68; RESP 16; TEMP 36.8; O2SAT 100
--- NOTE | 2024-04-16 18:34 | ED.EAR ---
HPI - Ear Problem General Chief complaint: Ear Stated complaint: left ear/pain into head Time Seen by Provider: 04/16/24 18:30 Source: patient, RN notes reviewed and old records reviewed Mode of arrival: ambulatory Limitations: no limitations History of Present Illness HPI Narrative: 43 ear old female presents to [facility] care with complaints of left ear pain for the past 2 days with some increased sinus congestion and drainage. Patient reports that she has been taking Ibuprofen and Zyrtec for her symptoms. Patient reports no known fevers, body aches or chest congestion. Patient denies any drainage from her left ear or any decreased hearing. MD Complaint: ear pain Location: left ear Duration: constant Severity: moderate Discharge from ear: Reports no Treatment prior to arrival: other (Ibuprofen and Zyrtec.) Related Data Home Medications ?Medication ?Instructions ?Recorded ?Confirmed ?Last Taken ?Type valacyclovir 1 gram tablet 1,000 mg PO DAILY 10/03/22 04/16/24 Unknown History Allergies Allergy/AdvReac Type Severity Reaction Status Date / Time sulfamethoxazole Allergy Unknown Rash Verified 04/16/24 17:00 trimethoprim Allergy Unknown Rash Verified 04/16/24 17:00 meperidine AdvReac Unknown Nausea and Verified 04/16/24 17:00 Vomiting Review of Systems Review of Systems: CONSTITUTIONAL: Denies malaise, chills, sweats, or fever. EYES: Denies visual changes, redness, or discharge. ENT: Reports rhinorrhea, congestion, sinus pain,left otalgia and no sore throat. CARDIOVASCULAR: Denies chest pain, palpitations, or edema. RESPIRATORY: Reports no cough.? Denies dyspnea. GASTROINTESTINAL: Denies abdominal pain, nausea, vomiting, diarrhea SKIN: Denies rash or itching. MUSCULOSKELETAL: Denies myalgia. NEUROLOGIC: Reports some headache. All systems reviewed & are unremarkable except as noted in HPI and below PMFSH Past Medical History Medical History Insomnia Surgical History Surgical History Previous section H/O: hysterectomy History of cholecystectomy Social History Social History Smoking status: Current every day smoker Tobacco type: e-cigarettes/vaping Alcohol intake: current Alcohol use details: social Substance use type: does not use Living arrangements: with family Gender identity (if verbalized by the patient): Female Comments At time of signature, agree with nursing past medical, surgical, social and family history. There is no relevant family history pertinent to the presenting complaint Exam Narrative: GENERAL: Well-appearing, well-nourished, and in no acute distress. HEAD: Normocephalic EYES: PERRLA, conjunctivae clear ENT: Nares clear, turbinates edematous and erythematous, clear discharge. Mucous membranes moist.Left TM red, right TM pearly lyman with dull light reflex bilaterally; no tragal tenderness. Oropharynx erythematous without lesions. Tonsils not enlarged and without exudate, no drooling, no hoarseness, no trismus, uvula midline.post nasal drainage noted NECK: Supple. No lymphadenopathy CHEST: Clear to auscultation, breath sounds equal. No wheezing, rhonchi, rales, or stridor. No respiratory distress, speaks in full sentences.no acute cough, SAO2 100% on room air HEART: Regular rate and rhythm. No murmur heard. SKIN: Warm, dry, no rash. NEURO: Alert and oriented x3. PSYCH: Normal mood and affect Course Course Emergency Course: Patient is aware of diagnosis, understands and agrees to treatment plan.? Anticipatory guidance given.? Patient agrees to follow-up as directed and is aware of reasons to seek care at the emergency department. Portions of this record may have been created with voice recognition software Level of Care: Express Care Visit Vital Signs Vital signs: Vital Signs Temperature 36.8 C 04/16/24 16:50 Pulse Rate 68 04/16/24 16:50 Respiratory Rate 16 04/16/24 16:50 Blood Pressure 139/80 04/16/24 16:50 Pulse Oximetry 100 04/16/24 16:50 Oxygen Delivery Room Air 04/16/24 16:50 Temperature 36.8 C 04/16/24 16:50 Pulse Rate 68 04/16/24 16:50 Respiratory Rate 16 04/16/24 16:50 Blood Pressure 139/80 04/16/24 16:50 Pulse Oximetry 100 04/16/24 16:50 Oxygen Delivery Room Air 04/16/24 16:50 Reviewed Medical Decision Making Differential Diagnosis Differential Diagnosis: URI, otitis media, headache, viral infection. Medical Records Medical records reviewed: Yes I reviewed the external patient's medical records. Vital Signs Vital Signs: Vital Signs Temperature 36.8 C 04/16/24 16:50 Pulse Rate 68 04/16/24 16:50 Respiratory Rate 16 04/16/24 16:50 Blood Pressure 139/80 04/16/24 16:50 Pulse Oximetry 100 04/16/24 16:50 Oxygen Delivery Room Air 04/16/24 16:50 Temperature 36.8 C 04/16/24 16:50 Pulse Rate 68 04/16/24 16:50 Respiratory Rate 16 04/16/24 16:50 Blood Pressure 139/80 04/16/24 16:50 Pulse Oximetry 100 04/16/24 16:50 Oxygen Delivery Room Air 04/16/24 16:50 Reviewed Critical Care Time Critical Care Time Critical Care Time: No Discharge Plan Discharge Clinical Impression: Acute left otitis media Patient Disposition: Home, Self-Care Condition: Stable Instructions: Antibiotic Form, Ear Infection (GEN) Additional Instructions: Increase fluids especially juices and water Tylenol or ibuprofen for any fever pain Zyrtec or Claritin daily heat to the face 20-30 minutes 4-6 times a day for pain Salt water gargles, throat lozenges or throat sprays as desired Antibiotic as directed--finished the medication If your symptoms persist, change or worsen significantly before you can contact your personal physician then please, without delay, go to the emergency department for further evaluation. Follow-up with PCP in 7-10 days or sooner if needed Follow up with PCP soon in regards to your blood pressure which is elevated above threshold for referral. Blood pressure above 120/80 may indicate pre-hypertension. 139/80 Patient Language: Lithuanian Prescriptions: New amoxicillin 500 mg capsule 500 mg PO Q8H Qty: 30 0RF No Action valacyclovir 1 gram tablet 1,000 mg PO DAILY triamcinolone acetonide 0.1 % ointment 1 applic topical BID Qty: 80 0RF Rx Instructions: never apply this to face famotidine [Pepcid] 20 mg tablet 20 mg PO DAILY Qty: 10 0RF zolpidem 10 mg tablet 10 mg PO DAILY PRN (Reason: insomnia) Qty: 30 2RF clonazepam 0.5 mg tablet 0.5 mg PO BID PRN (Reason: anxiety) Qty: 60 0RF Follow-up/Referrals: Rosalinda Londono MD [Primary Care Provider] - Time of Disposition: 18:40 Quality [place] Coma Scale Eyes: Open Verbal: Oriented and Alert Motor: Follows Commands Sarika Coma Total Score: 15
== END 2024-04-16 18:47 | disposition home or self-care (01) ==
PROVIDERS: Emergency Provider Registered Nurse; PCP Family Medicine
DX: H66.92 Otitis media, unspecified, left ear (principal); F17.290 Nicotine dependence, other tobacco product, uncomplicated
CPT/HCPCS: 99213; G0463

== ENCOUNTER 2024-12-11 09:57 | Emergency (ER) | payer BC, SELFPAY ==
[2024-12-11 10:01] VITALS: BP 122/70; PULSE 81; RESP 18; TEMP 37.3; O2SAT 99
--- NOTE | 2024-12-11 10:55 | ED_ITS ---
HPI - URI/Sore Throat General Chief Complaint: Upper Respiratory Infection Stated Complaint: throat/cough/chills Source: patient and RN notes reviewed Mode of arrival: ambulatory Limitations: no limitations History of Present Illness HPI Narrative: 44-year-old female presents Express Care complaining of cough, congestion, runny nose, chills, sore throat since last night. Patient denies any other upper respiratory symptoms, fevers, body aches, nausea vomiting, diarrhea, chest pain, difficulty breathing, abdominal pain, or any other symptoms. Patient has been using [id number] day cold/flu medication and Afrin with some relief. Patient reports a history of asthma. Related Data Allergies Allergy/AdvReac Type Severity Reaction Status Date / Time sulfamethoxazole Allergy Unknown Rash Verified 12/11/24 10:19 trimethoprim Allergy Unknown Rash Verified 12/11/24 10:19 meperidine AdvReac Unknown Nausea and Verified 12/11/24 10:19 Vomiting Review of Systems Review of Systems: CONSTITUTIONAL: Denies fever, body aches, or sweats. Positive for chills. EYES: Denies visual changes, redness, or discharge. ENT: Positive for rhinorrhea, congestion, sore throat. Negative for otalgia. CARDIOVASCULAR: Denies chest pain, palpitations, or edema. RESPIRATORY: Positive for cough. Negative for dyspnea or wheezing. GASTROINTESTINAL: Denies abdominal pain, nausea, vomiting, or diarrhea. GENITOURINARY: Denies dysuria or hematuria. SKIN: Denies rash or itching. MUSCULOSKELETAL: Denies back pain, joint pain, or myalgia. NEUROLOGIC: Denies headache, numbness, or weakness. PSYCHIATRIC: Denies anxiety or depression. All other systems reviewed are negative, except as documented in HPI. [facility] Past Medical History Medical History Right leg swelling Insomnia Surgical History Surgical History Previous section H/O: hysterectomy History of cholecystectomy Social History Social History Smoking status: Current every day smoker Tobacco type: e-cigarettes/vaping Alcohol intake: current Alcohol use details: social Substance use type: does not use Living arrangements: with family Gender identity (if verbalized by the patient): Female Comments At the time of my signature, I reviewed and agree with the nursing past medical, surgical, social, and family history. There is no relevant family history pertinent to the patient complaint. Exam Narrative: GENERAL: This is a well-nourished, well-developed adult, in no apparent distress. They are non ill-appearing, nontoxic appearing. HEAD: normocephalic, atraumatic. EYES: Sclera clear/white. Vision is grossly intact. Conjunctiva normal bilaterally. Extraocular movements intact. EARS: External ears normal, auditory canals clear and without drainage, TMs without erythema or perforation. Hearing grossly intact. NOSE: External nose normal with no obvious nasal discharge, nasal turbinates erythematous, no rhinorrhea. THROAT: Mucous membranes moist, posterior pharynx erythematous without exudate. Uvula is midline. Postnasal drip present. NECK: Neck supple, non-tender without lymphadenopathy, masses or thyromegaly. CARDIOVASCULAR: Regular rate and rhythm without murmurs, gallops, or rubs. RESPIRATORY: Clear to auscultation. Breath sounds equal bilaterally. No wheezes, rales, or rhonchi. Respiratory rate normal, respiratory effort nonlabored, no respiratory distress SKIN: warm, Dry, intact with no suspicious lesions or rash, good texture and turgor. NEURO: awake, alert, and oriented to person, place and time. There were no obvious focal neurologic abnormalities. EXTREMITIES: No joint tenderness, effusion, or edema noted. BACK: Nontender without deformity. Course Course Emergency Course: Portions of this record may have been created with voice recognition software Level of Care: Express Care Visit Vital Signs Vital signs: Vital Signs Temperature 99.1 F 12/11/24 10:01 Pulse Rate 81 12/11/24 10:01 Respiratory Rate 18 12/11/24 10:01 Blood Pressure 122/70 12/11/24 10:01 Pulse Oximetry 99 12/11/24 10:01 Oxygen Delivery Room Air 12/11/24 10:01 Temperature 99.1 F 12/11/24 10:01 Pulse Rate 81 12/11/24 10:01 Respiratory Rate 18 12/11/24 10:01 Blood Pressure 122/70 12/11/24 10:01 Pulse Oximetry 99 12/11/24 10:01 Oxygen Delivery Room Air 12/11/24 10:01 MDM - URI/Sore Throat MDM Narrative Medical decision making narrative: Rapid COVID, flu, strep were negative. A throat culture is pending. Symptoms likely viral upper respiratory infection. Discussed physical exam findings. Advised supportive measures and signs/symptoms to go to the ER. Pt is appropriate for outpt treatment and f/u. Differential Diagnosis Differential diagnosis: Likely upper respiratory infection, otitis media, sinusitis, viral infection and pharyngitis Discharge Plan Discharge Clinical Impression: Upper respiratory infection Qualifiers: URI type: unspecified viral URI Qualified Code(s): J06.9 - Acute upper respiratory infection, unspecified Patient Disposition: Home Condition: Stable Instructions: Antibiotic Form, Upper Respiratory Infection (ED) Additional Instructions: Your rapid COVID, flu, rapid strep swab was negative today at [facility]. You will be notified in a few days if the culture comes back positive for strep, and appropriate antibiotics will be called in for you at that time. Your symptoms are likely due to a viral illness, which is not treated with antibiotics. Viral symptoms can be present for up to 7-10 days. Take Tylenol or ibuprofen as needed for fever or pain. Follow instructions on the bottle. Do not use Afrin or its generic for more than 3 days in a row or will cause rebound congestion. Rest and stay hydrated. Follow up with your PCP in 5-7 days if symptoms are not improving. Go to the ER immediately if you developed chest pains, nausea, vomiting, difficulty breathing or swallowing, or any serious concerns. Patient Language: Kyrgyz Prescriptions: No Action zolpidem 10 mg tablet 10 mg PO DAILY PRN (Reason: insomnia) Qty: 30 2RF Follow-up/Referrals: Rosalinda Londono MD [Primary Care Provider, Family Practice] Time of Disposition: 10:53
[2024-12-11 10:57] LABS: EDCOVIDSCREEN Negative (Negative); EDINFLUASCREEN Negative (Negative); EDINFLUBSCREEN Negative (Negative); EDSTREPNEGPOS1 Negative (Negative)
== END 2024-12-11 10:56 | disposition home or self-care (01) ==
PROVIDERS: PCP Family Medicine
DX: J06.9 Acute upper respiratory infection, unspecified (principal); Z20.822 Contact with and (suspected) exposure to COVID-19; F17.290 Nicotine dependence, other tobacco product, uncomplicated; J45.909 Unspecified asthma, uncomplicated
CPT/HCPCS: 87081; 87426; 87804; 87880; 99213; G0463